=== PATIENT | female | born 1935 | race Caucasian/White ===

== ENCOUNTER → 2016-05-08 | Day surgery (SDC) | payer MEDICARE, BC ==
[~2016-05-08] MED LIST: ACETAMINOPHEN 1000 MG/100 ML VIAL IV ONE; BUPIVACAINE/EPINEPHRINE 0.25% 50 ML VIAL ONE; LACTATED RINGER'S 1000 ML INJ 1,000 ML ONE; LIDOCAINE 1%/EPINEPHrine 1:100,000 SOLN 30 ML VIAL ONE; NEOMYCIN/POLYMYXIN/BACITRACIN OINT 15 GM TUBE ONE; ONDANSETRON HCL 4 MG/2 ML VIAL IV PUSH ONE; PROPOFOL 200 MG/20 ML AMP IV ONE; VANCOMYCIN 500 MG VIAL ONE
--- NOTE | 2016-05-08 10:59 | TN ---
cc: ALEX VELEZ M.D. DATE OF SURGERY: 05/08/2016 PREOPERATIVE DIAGNOSIS 1. 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 2. 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 POSTOPERATIVE DIAGNOSIS 1. 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 2. 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 SURGEON Alex Velez MD ANESTHESIA LMA general, 60 cc of 1% lidocaine with epinephrine, mixed with 0.25% Marcaine in a 3:1 ratio. COMPLICATIONS None. DETAILS OF PROCEDURE 1. Wide local excision resulting in a primary defect of 6 x 6 cm on the neck, secondary is 6 x 12 cm. This required a myocutaneous flap totaling 108 cm. 2. The lesion on the chest is wide local excision resulting in a primary defect including the lesion of 3 x 3 cm, secondary is three x 6 cm. This required a fasciocutaneous flap totaling 27 sq cm. She was properly consented, marked and properly anesthetized. The skin was sterilized with Betadine solution and sterile draping applied. Excision was carried out in the usual fashion utilizing a 15 blade including about a 0.5 cm margin without any further problems and sent to pathology for permanent analysis with a 12 o'clock suture. The lesion on the chest was excised as previously described. The defects as previously described were reconstructed utilizing a fasciocutaneous for the chest and myocutaneous for the neck including the insetting was done utilizing 3-0 Monocryl suture in the subcuticular dermis and Prineo Dermabond as a tissue glue for the skin as thin as the skin was. Good viability of the tissue was noted at the end of the case. The patient was awakened and extubated in the operating room, transferred back to the post-anesthesia care unit in stable condition. No complications were appreciated. The patient tolerated the procedure fairly well. MD CLIFF Mackey/KAT /10:27 AM /10:45 AM [facility] CENTERZenaida
== END | disposition home or self-care (01) ==
LOC: ESDC 08:18
PROVIDERS: ATTEND Plastic Surgery
DX: C44.42 Squamous cell carcinoma of skin of scalp and neck (principal); C44.529 Squamous cell carcinoma of skin of other part of trunk
CPT/HCPCS: 00300; 00400; 11603; 11626; 15732; 15734; 88305; J0131; J2405; J3010; J3370; J7120

== ENCOUNTER 2017-01-02 09:56 | Inpatient (IN) | payer MEDICARE, BC ==
[2017-01-02] VITALS (10 sets, daily range): BP systolic 116–151; BP diastolic 51–63; PULSE 58–89; RESP 16–18; TEMP 98.1–98.3; O2SAT 96
[~2017-01-02] VITALS: Ht 152.4 cm; Wt 44.0 kg
[~2017-01-02 09:56] MED LIST changes: -ACETAMINOPHEN 1000 MG/100 ML VIAL IV ONE; +ALPR.25 PO; +ASPI81TA5 PO; -BUPIVACAINE/EPINEPHRINE 0.25% 50 ML VIAL ONE; +CALC1TAB87 PO; +CILO100T PO; +COQ-50CA2 PO; +ESTR1TAB PO; -LACTATED RINGER'S 1000 ML INJ 1,000 ML ONE; +LEXA10TA PO; -LIDOCAINE 1%/EPINEPHrine 1:100,000 SOLN 30 ML VIAL ONE; +MULT-65 PO; -NEOMYCIN/POLYMYXIN/BACITRACIN OINT 15 GM TUBE ONE; -ONDANSETRON HCL 4 MG/2 ML VIAL IV PUSH ONE; -PROPOFOL 200 MG/20 ML AMP IV ONE; +SIMV5TAB3 PO; +TYLE325T PO; -VANCOMYCIN 500 MG VIAL ONE
[2017-01-02] MEDS ORDERED: VANCOMYCIN HCL 1000 MG ON-CALL/NS 250 ML IV SCH ×2 (11:15)
[2017-01-02] MEDS ORDERED: CHLORHEXIDINE GLUCONATE 2 % 1 PACK (2 CLOTHS) TOPICAL PRN (11:30)
[2017-01-02] MEDS ORDERED: INSULIN HUMAN REGULAR 1,000 UNITS/10 ML VIAL SQ PRN (11:30)
[2017-01-02] MEDS ORDERED: METOPROLOL TARTRATE 25 MG TAB PO PRN (11:30)
[2017-01-02] MEDS ORDERED: SODIUM CHLORID 0.9% 500 ML IV PRN (11:30)
[2017-01-02] MEDS ORDERED: POVIDONE IODINE 5% (ANTISEPSIS KIT) 4 APPLICATIONS EACH NARE PRN (11:30)
[2017-01-02] MEDS ORDERED: LACTATED RINGER'S 1000 ML IV PRN (11:30)
[2017-01-02 11:33] LABS: AUTOMATED NEUTROPHIL # 5.6 TH/MM3 (1.8-7.7); BASOPHIL # 0.1 TH/MM3 (0-0.2); BASOPHIL % 0.6 % (0.0-2.0); EOSINOPHIL # 0.1 TH/MM3 (0-0.4); EOSINOPHIL % 0.6 % (0.0-4.0); HEMATOCRIT 44.9 % (35.0-46.0); HEMO FLAGS DIFF FINAL; LYMPH % 29.4 % (9.0-44.0); LYMPHOCYTE # 2.6 TH/MM3 (1.0-4.8); MEAN CORPUSCULAR HEMOGLOBIN 30.2 PG (27.0-34.0); MEAN CORPUSCULAR HGB CONC 33.6 % (32.0-36.0); MONO % 6.1 % (0.0-8.0); NEUT % 63.3 % (16.0-70.0); PLATELET COUNT 277 TH/MM3 (150-450); RED BLOOD COUNT 4.99 MIL/MM3 (4.00-5.30); RED CELL DISTRIBUTION WIDTH 15.2 % (11.6-17.2); WHITE BLOOD COUNT 8.8 TH/MM3 (4.0-11.0)
[2017-01-02 11:47] LABS: APTT (PATIENT) 29.4 SEC (24.3-30.1); PROTHROMBIN TIME - PATIENT 11.1 SEC (9.8-11.6)
[2017-01-02 11:49] LABS: BICARBONATE 27.9 MEQ/L (21.0-32.0)
[2017-01-02 11:56] LABS: POTASSIUM 4.9 MEQ/L (3.5-5.1)
[2017-01-02] MEDS ORDERED: HEPARIN SODIUM - SQ 10,000 UNITS/ML VIAL ONE (13:41)
[2017-01-02] MEDS ORDERED: BUPIVACAINE/EPINEPHRINE 0.5% 50 ML VIAL ONE (13:41)
[2017-01-02] MEDS ORDERED: PROTAMINE SULFATE 50 MG/5 ML VIAL ONE (13:42)
[2017-01-02] MEDS ORDERED: HEPARIN SODIUM - IV 10,000 UNITS/10 ML VIAL ONE (13:42)
[2017-01-02] MEDS ORDERED: ACETAMINOPHEN 1000 MG/100 ML 100 ML IV ONE (13:52)
[2017-01-02] MEDS ORDERED: DO NOT ADM ANY ANTICOAGULANT DRUGS PRN (16:14)
[2017-01-02] MEDS ORDERED: *ENALAPRILAT 1.25 MG/ML VIAL PERIprocedural Use ONLY ONE (16:34)
--- NOTE | 2017-01-02 17:29 | MP ---
cc: LACIE DE JESUS MARGARET M.D. DEGAETANO, MARGARET DATE OF SURGERY: 01/02/2017 PREOPERATIVE DIAGNOSIS: Symptomatic right carotid stenosis. POSTOPERATIVE DIAGNOSIS: Symptomatic right carotid stenosis. OPERATION: Right carotid endarterectomy with bovine patch angioplasty. SURGEON: Lacie De Jesus MD. SYSTEM DEVELOPER ASSOCIATE MANAGER: JUSTIN Ledesma ANESTHESIA: General endotracheal anesthesia. DESCRIPTION OF OPERATIVE PROCEDURE: With the patient in the supine position, general endotracheal anesthesia was induced, the cervical spine extended, rotated to the left, right anterior cervical area prepped with Betadine and draped in a sterile fashion. One gram of Ancef was administered intravenously and following a protocol time-out, skin and subcutaneous tissue along with the proposed incisional area preemptively infiltrated with 0.5% Marcaine with epinephrine. A curvilinear incision was performed along the anterior border of the sternocleidomastoid, care taken to fashion the incision along the border of the myocutaneous flap that had been placed to cover the large cervical defect. Following removal of squamous cell carcinoma by Dr Velez. The incision was deepened through the platysma. The internal jugular lining was mobilized laterally. The common internal, external carotid and superior thyroid arteries were gently mobilized and encircled with vessel loops, care taken to identify and protect the hypoglossal and vagus nerves. The patient was systemically heparinized with 5000 units. The superior thyroid, external and internal carotid arteries were sequentially occluded with the X reveal clips, proximal common carotid artery occluded with an angled a vascular clamp. A vertical arteriotomy was performed along the anterolateral surface of the common carotid and continued into the proximal internal carotid lumen across a largely fibrotic eccentric atherosclerotic plaque which exhibited subintimal hemorrhage / hematoma with intimal disruption producing approximately 70-80% stenosis of the proximal internal carotid lumen. The Benjamín shunt was introduced and secured with Benjamín shunt clamps, care taken to avoid air or atheroembolization. The plaque was cleanly and completely endarterectomized. The <<3:09>> lumen was irrigated with heparinized saline. Bovine patch was delivered to the endarterectomy incision with continuous 6-0 Prolene. Prior to placement of the final sutures the Benjamín shunt was removed, the arterial lumen appropriately flushed, final sutures placed and tied. Pulsatile flow was reestablished first into the external and secondly into the internal carotid as confirmed by Doppler signal. Heparin was reversed with 20 mg of protamine and strict hemostasis was assured. The platysmal fascia was reapproximated with continuous 4-0 Monocryl, skin reapproximated with continuous subcuticular 5-0 Monocryl. Steri-Strips and sterile dressing applied. There were no operative complications. Instrument, needle and sponge count correct x2. Upon awakening from anesthesia no lateralizing neurological deficits were present. MD HARPAL Jang/lynne /4:59 PM /5:17 PM
--- NOTE | 2017-01-02 17:53 | EKG ---
Date Performed: 01/02/2017 Time Performed: 10:31:47 PTAGE: 81 years EKG: Sinus rhythm WITH MARKED SINUS ARRHYTHMIA BORDERLINE RIGHT AXIS DEVIATION ANTEROSEPTAL MYOCARDIAL INFARCTION , OF INDETERMINATE AGE ABNORMAL ECG NO PREVIOUS TRACING DOCTOR: Silva Lyles Interpretating Date/Time 01/02/2017 17:49:15
[2017-01-02] MEDS ORDERED: ALPRAZolam 0.25 MG TAB PO PRN (18:00)
[2017-01-02] MEDS ORDERED: ASPIRIN EC 81 MG TABEC PO ONE (18:15)
[2017-01-02] MEDS ORDERED: POTASSIUM CHLOR 20 MEQ 100 ML x 2 BAGS IV PRN (18:15)
[2017-01-02] MEDS ORDERED: ONDANSETRON HCL 4 MG/2 ML VIAL IV PUSH PRN (18:15)
[2017-01-02] MEDS ORDERED: SODIUM CHLORIDE 0.9% FLUSH 10 ML FLUSH IV FLUSH PRN (18:15)
[2017-01-02] MEDS ORDERED: MAGNESIUM SULFATE 1 GM/100 ML IV PRN (18:15)
[2017-01-02] MEDS ORDERED: POTASSIUM PHOSPHATE 21 MMOL/NS 250 ML IV PRN ×2 (18:15)
[2017-01-02] MEDS ORDERED: MORPHINE SULFATE 4 MG/ML INJ IV PUSH PRN (18:15)
[2017-01-02] MEDS ORDERED: POTASSIUM CHLOR 20 MEQ/100 ML x 1 BAG IV PRN (18:15)
[2017-01-02] MEDS: ACETAMINOPHEN/HYDROcodone 325 MG/5 MG TAB PO PRN (20:12)
[2017-01-02] MEDS ORDERED: SODIUM CHLORIDE 0.9% FLUSH 10 ML FLUSH IV FLUSH SCH (21:00)
[2017-01-03] VITALS (18 sets, daily range): BP systolic 134–147; BP diastolic 63–67; PULSE 61–92; RESP 18; TEMP 98.7; O2SAT 91–93
[2017-01-03] MEDS: ACETAMINOPHEN/HYDROcodone 325 MG/5 MG TAB PO PRN ×3 (02:03→12:36)
[2017-01-03] MEDS ORDERED: ESCITALOPRAM OXALATE 10 MG TAB PO SCH (09:00)
[2017-01-03] MEDS ORDERED: ASPIRIN EC 81 MG TABEC PO SCH (09:00)
[2017-01-03] MEDS ORDERED: ESTRADIOL 1 MG TAB PO SCH (09:00)
[2017-01-03] MEDS ORDERED: PRAVASTATIN SOD 10 MG TAB PO SCH (09:00)
== END 2017-01-03 14:15 | disposition home or self-care (01) | DRG 39 ==
LOC: HSDI 09:56 → HCPC 17:30
PROVIDERS: ADMIT Surgery Vascular Surgery; ATTEND Surgery Vascular Surgery
PROC: 03UH0KZ Supplement Right Common Carotid Artery with Nonautologous Tissue Substitute, Open Approach (ICD-10-PCS; 2017-01-02)
PROC: 03CK0ZZ Extirpation of Matter from Right Internal Carotid Artery, Open Approach (ICD-10-PCS; principal; 2017-01-02 14:10)
DX: I65.21 Occlusion and stenosis of right carotid artery (principal); I73.9 Peripheral vascular disease, unspecified; E78.5 Hyperlipidemia, unspecified; Z85.828 Personal history of other malignant neoplasm of skin; F17.210 Nicotine dependence, cigarettes, uncomplicated; M85.80 Other specified disorders of bone density and structure, unspecified site
CPT/HCPCS: 80048; 85025; 85610; 85730; 86850; 86900; 86901; 93005; J0131; J1644; J2720; J3370; J7050; J7120

== ENCOUNTER 2017-04-11 03:13 | Emergency (ER) | payer MEDICARE, BC ==
[~2017-04-11 03:13] MED LIST changes: -ASPI81TA5 PO; +ECASA81 PO
[2017-04-11 03:19] VITALS: BP 200/90; PULSE 92; RESP 18; TEMP 97.6; O2SAT 94
[2017-04-11 03:36] LABS: AUTOMATED NEUTROPHIL # 8.3 TH/MM3 (1.8-7.7); BASOPHIL % 0.2 % (0.0-2.0); EOSINOPHIL % 0.1 % (0.0-4.0); HEMATOCRIT 40.3 % (35.0-46.0); HEMOGLOBIN 13.6 GM/DL (11.6-15.3); LYMPH % 19.5 % (9.0-44.0); LYMPHOCYTE # 2.3 TH/MM3 (1.0-4.8); MEAN CELL VOLUME 89.6 FL (80.0-100.0); MEAN CORPUSCULAR HEMOGLOBIN 30.1 PG (27.0-34.0); MEAN CORPUSCULAR HGB CONC 33.6 % (32.0-36.0); MEAN PLATELET VOLUME 7.7 FL (7.0-11.0); MONO % 8.4 % (0.0-8.0); NEUT % 71.8 % (16.0-70.0); PLATELET COUNT 281 TH/MM3 (150-450); RED CELL DISTRIBUTION WIDTH 14.3 % (11.6-17.2); WHITE BLOOD COUNT 11.6 TH/MM3 (4.0-11.0)
--- NOTE | 2017-04-11 03:37 | PD ---
HPI Chief Complaint: Bleeding Time Seen by Provider: 03:19 Travel History International Travel<30 days: No Contact w/Intl Traveler<30days: No Traveled to known affect area: No History of Present Illness HPI The patient is an 82 year old female who presents to the [facility] emergency department with a history of bleeding from her fresh surgical site that began around 1:30 AM today. The patient reports that she awoke to witness on the right side of her neck. She reports that she had right ear surgery for a cancer involving the right ear done by the plastic surgeon, between 9 and 10 AM yesterday. The patient reports that she had been on aspirin, however she discontinued that a week prior to the surgery. She is also on Pletal which she resumed yesterday. The patient arrives by ambulance services with a pressure bandage in place that is soaked with blood. The patient reports feeling anxious. She otherwise denies any lightheaded sensation, chest pain, chest pressure, or shortness of breath. The patient on review of systems , denies any recent fevers, worsening cough or congestion, neck pain, abdominal pain, vomiting, diarrhea, urinary symptoms, or neurologic symptoms. FOR[facility]LY [facility], LAT[facility] Past Medical History Narrative Medical The patient's past medical history is significant for right carotid stenosis status post carotid endarterectomy, history of COPD, hyperlipidemia, osteopenia , mitral valve prolapse, irritable bowel syndrome, Anxiety disorder Cancer: Yes (BASAL CELL R SIDE OF NECK, AND R SIDE CHEST SKIN CA) Diabetes: No Diminished Hearing: Yes Endocrine: No Gastrointestinal Disorders: Yes (IBS) Genitourinary: No Hepatitis: No Hiatal Hernia: No Immune Disorder: No Musculoskeletal: No Neurologic: Yes (VISION DIFFICULTY IN R EYE FROM Oct) Psychiatric: No Reproductive: No Respiratory: Yes (COPD) Thyroid Disease: No Tetanus Vaccination: Unknown Influenza Vaccination: Yes Past Surgical History Narrative Surgical The patient's past surgical history is significant for a right carotid endarterectomy, total abdominal hysterectomy, basal cell carcinoma excisions, cataract surgery on the right eye, left external iliac stenting, right external iliac stenting. Abdominal Surgery: Yes (APPY) AICD: No Body Medical Devices: STENTS IN BOTH LEGS Cardiac Surgery: Yes (2 STENT IN R LEG 1 STENT IN L LEG) Ear Surgery: No Eye Surgery: Yes (BILATERAL CATARACTS) Gynecologic Surgery: Yes (HYSTERECTOMY) Joint Replacement: No Pacemaker: No Other Surgery: Yes Social History Alcohol Use: No Tobacco Use: Yes Substance Use: No Allergies-Medications (Allergen,Severity, Reaction): Coded Allergies: Sulfa (Sulfonamide Antibiotics) (Verified Allergy, Severe, Rash, 01/02/17) amoxicillin (Verified Allergy, Severe, Nausea/Vomiting, 01/02/17) Reported Meds & Prescriptions Reported Meds & Active Scripts Active Reported Tylenol (Acetaminophen) 325 Mg Tab 325 Mg PO ONCE PRN Calcium 600 with Vitamin D (Calcium Carbonate-Cholecalciferol) 600-400 mg-Unit Tab 1 Tab PO DAILY Multi-Vitamin Daily (Multiple Vitamin) 1 Tab Tab 1 Tab PO DAILY Coq-10 (Coenzyme Q10 (Ubidecarenone)) 50 Mg Cap 100 Mg PO DAILY Aspirin (Aspirin) 81 Mg Tabdr 81 Mg PO DAILY PT WAS TOLD NOT TO STOP BY DR DE JESUS Cilostazol 100 Mg Tab 100 Mg PO BID Xanax (Alprazolam) 0.25 Mg Tab 0.0625 Mg PO Q4H PRN Simvastatin 5 Mg Tab 5 Mg PO DAILY Estradiol 1 Mg Tab 1 Mg PO DAILY Lexapro (Escitalopram Oxalate) 10 Mg Tab 10 Mg PO DAILY Review of Systems Except as stated in HPI: all other systems reviewed are Neg General / Constitutional: No: Fever Eyes: No: Visual changes HENT: Positive: Other (bleeding from the right ear), No: Headaches Cardiovascular: No: Chest Pain or Discomfort Respiratory: No: Shortness of Breath Gastrointestinal: No: Nausea, Vomiting, Diarrhea, Abdominal Pain Genitourinary: No: Dysuria Musculoskeletal: No: Pain Skin: No Rash Neurologic: No: Weakness Psychiatric: Positive: Anxiety, No: Depression Endocrine: No: Polydipsia Hematologic/Lymphatic: No: Easy Bruising Physical Exam Narrative General: The patient is a well-developed, thin appearing female, anxious appearing on examination, otherwise in no acute distress. Head and Neck exam: Head is normocephalic atraumatic. Eyes: EOMI, pupils are equal round and reactive to light. Ears: The patient on examination has a pressure bandage in place on arrival with blood soaking through it. The pressure bandage was gently cut down. The patient was noted to have what appeared to be a graft inside the ear just outside of the external auditory canal. The lower aspect of this graft near the lobe appears to be oozing blood continuously. Pressure was applied by me. Pressure was held for approximately 10 minutes. When the pressure was discontinued the bleeding began again to ooze. Gelfoam was then cut down to size and placed over the area of bleeding and then her ear was repacked and a pressure bandage applied. The bleeding was controlled. Nose: Midline septum with pink mucous membranes Mouth: Dentition unremarkable. Moist mucus membranes. Posterior oropharynx is not erythematous. No tonsillar hypertrophy. Uvula midline. Airway patent. Neck: No palpable lymphadenopathy. No nuchal rigidity. No thyromegaly. Cardiovascular: Regular rate and rhythm without murmurs, gallops, or rubs. Lungs: Clear to auscultation bilaterally. No wheezes, rhonchi, or rales. Abdomen: Soft, without tenderness to palpation in all 4 quadrants of the abdomen. No guarding, rebound, or rigidity. Normal bowel sounds are audible. No tenderness on palpation of McBurney's point. Extremities: No clubbing, cyanosis, or edema. 2+ pulses in all 4 extremities. No calf tenderness on palpation. Back: No spinous process tenderness to palpation. No costovertebral angle tenderness to palpation. Neurologic Exam: Grossly nonfocal. The patient is tremulous on examination. She reports that she feels anxious. Skin Exam: No rash noted. Intact skin that is warm and dry. Data Data Last Documented VS Vital Signs Date Time Temp Pulse Resp B/P (MAP) Pulse Ox O2 Delivery O2 Flow Rate FiO2 04/11/17 06:50 04/11/17 06:45 86 16 98 04/11/17 03:19 97.6 Orders Orders Electrocardiogram (04/11/17 03:20) Complete Blood Count With Diff (04/11/17 03:20) Basic Metabolic Panel (Bmp) (04/11/17 03:20) Prothrombin Time / Inr (Pt) (04/11/17 03:20) Act Partial Throm Time (Ptt) (04/11/17 03:20) Iv Access Insert/Monitor (04/11/17 03:20) Ecg Monitoring (04/11/17 03:20) Oximetry (04/11/17 03:20) Type And Screen (04/11/17 03:20) Gelatin 12 Mm/7 Mm Top (Gelfoam 12 Mm/7 (04/11/17 03:45) Morphine Inj (Morphine Inj) (04/11/17 04:45) Ondansetron Inj (Zofran Inj) (04/11/17 04:45) Alprazolam (Xanax) (04/11/17 06:15) Ed Discharge Order (04/11/17 06:50) Labs Laboratory Tests Test 04/11/17 03:30 White Blood Count 11.6 TH/MM3 Red Blood Count 4.50 MIL/MM3 Hemoglobin 13.6 GM/DL Hematocrit 40.3 % Mean Corpuscular Volume 89.6 FL Mean Corpuscular Hemoglobin 30.1 PG Mean Corpuscular Hemoglobin Concent 33.6 % Red Cell Distribution Width 14.3 % Platelet Count 281 TH/MM3 Mean Platelet Volume 7.7 FL Neutrophils (%) (Auto) 71.8 % Lymphocytes (%) (Auto) 19.5 % Monocytes (%) (Auto) 8.4 % Eosinophils (%) (Auto) 0.1 % Basophils (%) (Auto) 0.2 % Neutrophils # (Auto) 8.3 TH/MM3 Lymphocytes # (Auto) 2.3 TH/MM3 Monocytes # (Auto) 1.0 TH/MM3 Eosinophils # (Auto) 0.0 TH/MM3 Basophils # (Auto) 0.0 TH/MM3 CBC Comment DIFF FINAL Differential Comment Prothrombin Time 10.3 SEC Prothromb Time International Ratio 1.0 RATIO Activated Partial Thromboplast Time 25.8 SEC Blood Urea Nitrogen 15 MG/DL Creatinine 0.86 MG/DL Random Glucose 117 MG/DL Calcium Level 8.7 MG/DL Sodium Level 138 MEQ/L Potassium Level 4.2 MEQ/L Chloride Level 105 MEQ/L Carbon Dioxide Level 27.0 MEQ/L Anion Gap 6 MEQ/L Estimat Glomerular Filtration Rate 63 ML/MIN [facility] Medical Decision Making Medical Screen Exam Complete: Yes Emergency Medical Condition: Yes Medical Record Reviewed: Yes Differential Diagnosis Symptomatic anemia from postop hemorrhage, versus postoperative bleeding Narrative Course During the course of the patients emergency department visit, the patients history, examination, and differential diagnosis were reviewed with the patient. The patient was placed on a school bus monitor with oximetry and frequent blood pressure monitoring. The patient had IV access obtained and blood work sent for analysis. I spoke to Dr. Velez regarding this patient's case when the patient arrived at approximately 3:26 AM. He recommended controlling the bleeding and then having the patient follow-up in his office this morning her reexamination. The patient was initially provided morphine for pain, Zofran for nausea. The patient was given Xanax her 0.125 her usual dose or anxiety. The patients laboratory studies were reviewed and remarkable for a white count of 11.6, hemoglobin 13.6, platelets 281 with 71.8 neutrophils, monocytes 8.4, basic metabolic profile is remarkable for glucose of 117, PT 10.3, PTT 25.8. The patient requested that I call back regarding her follow-up in his office today. She requested that he come by the emergency department to see the patient on his way into the office so that she could possibly avoid going there in addition to the emergency department. A call was placed out to Dr. Velez again at 6:20AM to make this requested the patient. I spoke to again regarding this patient's case. He reports that his office opens at 8 AM. He recommends that the patient follow-up in his office at that time. He also reports that he plans to call the patient to reassure her. The patient continues to have no bleeding through bandaging. The patient is resting comfortably and feels better, is alert and in no distress. The patients results and examination findings were discussed with the patient. The repeat examination is unremarkable and benign. The history, exam, diagnostic testing, and current condition do not suggest any significant pathology to warrant further testing, continued ED treatment, admission, or surgical evaluation at this point. The vital signs have been stable. The patient does not have uncontrollable pain, intractable vomiting, or other significant symptoms. The patient's condition is stable and appropriate for discharge. The patient will pursue further outpatient evaluation with a primary care physician or other designated or consulting physician as indicated in the discharge instructions. The patient expressed understanding and was agreeable with this plan. Physician Communication Physician Communication The patient's case including history, pertinent physical examination findings, and laboratory studies were discussed with Dr. Velez at 3:26AM. Diagnosis Primary Impression: Bleeding Additional Impression: Pain at surgical site Referrals: Alex Velez MD Additional Instructions: Follow-up with Dr. Velez today in his office at 8 AM. Med/Other Pt SpecificInfo: No Change to Meds Disposition: 01 DISCHARGE HOME Condition: Stable Mandeep,Norma D. MD Apr 11, 2017 03:37
[2017-04-11] MEDS ORDERED: GELATIN 12 MM/7 MM FOAM TOPICAL ONE (03:45)
[2017-04-11 03:48] LABS: CALCIUM 8.7 MG/DL (8.5-10.1); CREATININE 0.86 MG/DL (0.50-1.00)
[2017-04-11 03:55] LABS: PROTHROMBIN TIME - PATIENT 10.3 SEC (9.8-11.6)
[2017-04-11] MEDS ORDERED: MORPHINE SULFATE 4 MG/ML INJ IV PUSH ONE (04:45)
[2017-04-11] MEDS ORDERED: ONDANSETRON HCL 4 MG/2 ML VIAL IV PUSH ONE (04:45)
[2017-04-11 06:00] VITALS: BP 187/84; PULSE 104; RESP 18; O2SAT 98
[2017-04-11] MEDS ORDERED: ALPRAZolam 0.25 MG TAB PO STA (06:15)
[2017-04-11 06:45] VITALS: BP 165/74; PULSE 86; RESP 16; O2SAT 98
== END 2017-04-11 07:26 | disposition home or self-care (01) ==
LOC: NEPE 03:13
DX: H95.42 Postprocedural hemorrhage of ear and mastoid process following other procedure (principal); F41.9 Anxiety disorder, unspecified; J44.9 Chronic obstructive pulmonary disease, unspecified; E78.5 Hyperlipidemia, unspecified; I34.1 Nonrheumatic mitral (valve) prolapse; M85.80 Other specified disorders of bone density and structure, unspecified site; Z85.828 Personal history of other malignant neoplasm of skin; Z72.0 Tobacco use
CPT/HCPCS: 12011; 80048; 85025; 85610; 85730; 86850; 86900; 86901; 96374; 96375; 99283; J2270; J2405